=== PATIENT | male | born 1970 | race Caucasian/White ===

== ENCOUNTER → 2019-07-16 | Outpatient (REF) | payer OTHER | LOC: M LAB REF 18:35 | PROVIDERS: ATTEND Dermatology | DX: D49.2 Neoplasm of unspecified behavior of bone, soft tissue, and skin (principal) ==

== ENCOUNTER → 2020-03-04 | Outpatient (CLI) | payer OTHER ==
--- NOTE | 2020-03-16 10:50 | REP ---
LIMITED ABDOMINAL ULTRASOUND CLINICAL: Elevated liver function tests. TECHNIQUE: Real-time mahan scale and color Doppler evaluation using curved array transducer. FINDINGS: The liver is mildly enlarged and diffusely echogenic with poor through transmission suggesting hepatomegaly and fatty infiltration. No focal hepatic lesions are identified. Liver measures approximately 18.5 cm in craniocaudal length. Visualized portions of the pancreas are normal. The gallbladder is unremarkable and without gallstones, wall thickening, or pericholecystic fluid. No biliary ductal dilatation is appreciated. The common bile duct measures 2.9 mm in diameter. The right kidney is normal in reniform shape without hydronephrosis and measures 10.8 x 5.9 x 5.8 cm. No ascites in the visualized right upper quadrant. IMPRESSION: Hepatomegaly and hepatosteatosis. No focal hepatic lesion is identified. MTDD
== END ==
LOC: M RAD 07:04
PROVIDERS: ATTEND Physician Assistant Medical
DX: R16.0 Hepatomegaly, not elsewhere classified (principal); R94.5 Abnormal results of liver function studies

== ENCOUNTER → 2020-05-07 | Outpatient (CLI) | payer OTHER | LOC: M LABSMTC 10:11 | PROVIDERS: ATTEND Family Medicine | DX: Z20.828 Contact with and (suspected) exposure to other viral communicable diseases (principal) | CPT/HCPCS: C9803; U0003 ==

== ENCOUNTER 2023-08-30 06:38 | Day surgery (SDC) | payer OTHER ==
[~2023-08-30] VITALS: Ht 175.3 cm; Wt 87.3 kg
[~2023-08-30 06:38] MED LIST: ACID1CAP5 PO; ARIP1TAB4 PO; ATOR80TA59 PO; CHLO25TA PO; D200CAP PO; D3 H10002 PO; FIBE625T PO; FLUO20CA22 PO; HYDR-643 PO; LOSA50TA28 PO; MELO15TA28 PO; NICOINH IN; PANT40TA29 PO; THERTAB52 PO; TRAZ-186 PO
[2023-08-30] MEDS: NS 1,000 ML IV ONE (07:26)
[2023-08-30] MEDS ORDERED: LIDOCAINE 2% 100MG/5ML SDV (FOR ANES.) As Ordered ONE (07:50)
[2023-08-30] MEDS ORDERED: propofoL 200 MG/20 ML VIAL As Ordered ONE (07:50)
[2023-08-30 08:10] VITALS: TEMP 98.5
[2023-08-30 08:31] VITALS: BP 140/87; O2SAT 97
== END 2023-08-30 08:40 | disposition home or self-care (01) ==
LOC: M OPP 06:38
PROVIDERS: ATTEND Internal Medicine Gastroenterology
DX: Z12.11 Encounter for screening for malignant neoplasm of colon (principal); Z12.12 Encounter for screening for malignant neoplasm of rectum; K21.00 Gastro-esophageal reflux disease with esophagitis, without bleeding; K64.0 First degree hemorrhoids; K44.9 Diaphragmatic hernia without obstruction or gangrene; I10 Essential (primary) hypertension; E78.00 Pure hypercholesterolemia, unspecified; G47.30 Sleep apnea, unspecified; G62.9 Polyneuropathy, unspecified; Z79.899 Other long term (current) drug therapy; Z79.1 Long term (current) use of non-steroidal anti-inflammatories (NSAID); Z87.891 Personal history of nicotine dependence